=== PATIENT | female | born 1990 | race Caucasian/White ===

== ENCOUNTER 2016-09-23 14:39 | Emergency (ER) | payer SELFPAY ==
[~2016-09-23] VITALS: Ht 160 cm; Wt 80.0 kg
[~2016-09-23 14:39] MED LIST: PRED15SO PO; VENTAER INH; ZITHTAB6 PO
[2016-09-23 14:40] VITALS: BP 122/54; PULSE 76; RESP 20; TEMP 97.9; O2SAT 97
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
[2016-09-23] MEDS ORDERED: PRED20 PO (15:13)
[2016-09-23] MEDS ORDERED: VENTAER INH (15:13)
[2016-09-23] MEDS ORDERED: FLUT1SPR9 EACH NARE (15:13)
[2016-09-23] MEDS ORDERED: AMOX875T PO (15:13)
== END 2016-09-23 15:39 | disposition home or self-care (01) ==
LOC: NEPB 14:39
DX: J01.90 Acute sinusitis, unspecified (principal); J45.901 Unspecified asthma with (acute) exacerbation; F17.210 Nicotine dependence, cigarettes, uncomplicated
CPT/HCPCS: 99283

== ENCOUNTER 2016-09-30 15:03 | Emergency (ER) | payer BC ==
[~2016-09-30] VITALS: Ht 160 cm; Wt 80.0 kg
[~2016-09-30 15:03] MED LIST changes: +AMOX875T PO; +FLUT1SPR9 EACH NARE; -PRED15SO PO; +PRED20 PO; -ZITHTAB6 PO
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
[2016-09-30] MEDS: ALUMINUM/MAGNESIUM/SIMETH 30 ML CUP PO ONE ×2 (17:00→17:18)
[2016-09-30] MEDS ORDERED: ONDANSETRON ODT 4 MG TAB PO ONE (17:00)
[2016-09-30] MEDS: LIDOCAINE VISCOUS 2% SOLN 15 ML UDC PO ONE ×2 (17:00→17:18)
[2016-09-30] MEDS ORDERED: ZOFR4TAB PO (17:02)
[2016-09-30 17:05] VITALS: BP 117/70; PULSE 68; RESP 18; TEMP 97.9; O2SAT 98
[2016-09-30 17:23] LABS: BLOOD, URINE SMALL (NEG); COMMENT (UR) CULT NOT INDICATED; CULTURE IF INDICATED CULT NOT INDICATED; GLUCOSE,URINE NEG (NEG); KETONE, URINE NEG (NEG); MUCUS URINE FEW /lpf (OCC); NITRITE,URINE NEG (NEG); PH, URINE 5.5 (5.0-8.5); SQUAMOUS EPITHELIAL CELL URINE 1 /hpf (0-5); URINE COLOR YELLOW (YELLW/STRAW)
== END 2016-09-30 17:36 | disposition left against medical advice (07) ==
LOC: NETRI 15:03
DX: R11.2 Nausea with vomiting, unspecified (principal); F17.210 Nicotine dependence, cigarettes, uncomplicated
CPT/HCPCS: 81001; 84703; 99284

== ENCOUNTER 2016-12-15 12:50 | Emergency (ER) | payer BC ==
[~2016-12-15] VITALS: Ht 157.5 cm; Wt 90.0 kg
[~2016-12-15 12:50] MED LIST changes: +ZOFR4TAB PO
[2016-12-15 12:52] VITALS: BP 120/78; PULSE 96; RESP 16; TEMP 98.3; O2SAT 96
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
[2016-12-15] MEDS ORDERED: IBUP800T23 PO (13:43)
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
== END 2016-12-15 15:19 | disposition left against medical advice (07) ==
LOC: NEPK 12:50
DX: M25.571 Pain in right ankle and joints of right foot (principal)
CPT/HCPCS: 73610; 99283

== ENCOUNTER 2017-01-02 13:46 | Emergency (ER) | payer SELFPAY ==
[~2017-01-02 13:46] MED LIST changes: +IBUP800T23 PO
[2017-01-02 13:47] VITALS: BP 120/73; PULSE 106; RESP 20; TEMP 98.1; O2SAT 96
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
== END 2017-01-02 16:00 | disposition home or self-care (01) ==
LOC: NEPK 13:46
DX: S93.401D Sprain of unspecified ligament of right ankle, subsequent encounter (principal); F31.9 Bipolar disorder, unspecified; F41.9 Anxiety disorder, unspecified; M94.0 Chondrocostal junction syndrome [Tietze]; F17.210 Nicotine dependence, cigarettes, uncomplicated; X58.XXXD Exposure to other specified factors, subsequent encounter
CPT/HCPCS: 99283; E0113; L1906

== ENCOUNTER 2017-05-24 16:05 | Emergency (ER) | payer MEDICAID ==
[~2017-05-24] VITALS: Ht 160 cm; Wt 90.5 kg
[~2017-05-24 16:05] MED LIST changes: -AMOX875T PO; -FLUT1SPR9 EACH NARE; -IBUP800T23 PO; -PRED20 PO; -ZOFR4TAB PO
[2017-05-24 16:06] VITALS: BP 141/98; PULSE 75; RESP 16; TEMP 98.1; O2SAT 98
--- NOTE | 2017-05-24 16:18 | PD ---
Physical Exam Date Seen by Provider: May 24, 2017 Time Seen by Provider: 16:17 Narrative 26 yo female here for bleeding and . Unknown how long. Found out recently by urine. Started bleeding with cramping about one hour ago. No other medical issues. Vitals are stable in triage. Awaiting bed placement. Data Data Last Documented VS Vital Signs Date Time Temp Pulse Resp B/P (MAP) Pulse Ox O2 Delivery O2 Flow Rate FiO2 05/24/17 16:06 98.1 75 16 141/98 (112) 98 Room Air Orders Orders Urinalysis - C+S If Indicated (05/24/17 16:16) Ed Urine Pregnancytest Poc (05/24/17 16:16) MDM Medical Record Reviewed: Yes Supervised Visit with DENTON: Albert Anguiano May 24, 2017 16:18
[2017-05-24 17:06] VITALS: BP 123/58; PULSE 73; RESP 16; O2SAT 98
--- NOTE | 2017-05-24 17:23 | PD ---
HPI Chief Complaint: Related Problem Time Seen by Provider: 17:10 Travel History International Travel<30 days: No Contact w/Intl Traveler<30days: No Traveled to known affect area: No History of Present Illness HPI 26-year-old female presents the emergency department with question of with vaginal bleeding today. Patient denies any significant cramping , But does have some back discomfort. Fever, chills, or dysuria. Patient's last menstrual period was April 05. Patient has never been before. Patient has allergies to coconuts and bees PFSH Past Medical History ADHD: No Bipolar Disorder: Yes Anxiety: Yes Cancer: No Cardiovascular Problems: No Diabetes: No Diminished Hearing: No Musculoskeletal: Yes (COSTOCHONDRITIS) Psychiatric: Yes (HX HBS INPT) Respiratory: No Immunizations Current: No Migraines: No Seizures: No Thyroid Disease: No Ulcer: No Influenza Vaccination: No ?: LMP: APRIL 05, 2017 : 1 Past Surgical History Appendectomy: No Cholecystectomy: Yes Other Surgery: No Social History Alcohol Use: No Tobacco Use: Yes (1/2 PPD PRE-) Substance Use: Yes (MARIJAUNA) Allergies-Medications (Allergen,Severity, Reaction): Coded Allergies: bee venom protein (honey bee) (Unverified Allergy, Severe, THROAT SWELLING , 05/24/17) coconut (Unverified Allergy, Severe, FACIAL EDEMA, 05/24/17) Reported Meds & Prescriptions Reported Meds & Active Scripts Active Review of Systems Except as stated in HPI: all other systems reviewed are Neg General / Constitutional: No: Fever Eyes: No: Visual changes HENT: No: Headaches Cardiovascular: No: Chest Pain or Discomfort Respiratory: No: Shortness of Breath Gastrointestinal: No: Abdominal Pain Genitourinary: Positive: Vaginal Bleeding, No: Urgency, Frequency, Dysuria, Pelvic Pain, Flank Pain Musculoskeletal: No: Pain Skin: No Rash Neurologic: No: Weakness Psychiatric: No: Depression Endocrine: No: Polydipsia Hematologic/Lymphatic: No: Easy Bruising Physical Exam Narrative GENERAL: Patient is no acute distress SKIN: Warm and dry. Normal color. Normal turgor. HEAD: Atraumatic. Normocephalic. EYES: Pupils equal and round. No scleral icterus. No injection or drainage. ENT: No nasal bleeding or discharge. Mucous membranes pink and moist. Pharynx is clear. Airway is patent. NECK: Trachea midline. Supple and nontender. CARDIOVASCULAR: Regular rate and rhythm. RESPIRATORY: No accessory muscle use. Clear to auscultation. Breath sounds equal bilaterally. GASTROINTESTINAL: Abdomen soft, non-tender, nondistended. Hepatic and splenic margins not palpable. MUSCULOSKELETAL: Extremities without clubbing, cyanosis, or edema. No obvious deformities. No CVA tenderness. NEUROLOGICAL: Awake and alert. No obvious cranial nerve deficits. Motor grossly within normal limits. Five out of 5 muscle strength in the arms and legs. Normal speech. PSYCHIATRIC: Appropriate mood and affect; insight and judgment normal. Data Data Last Documented VS Vital Signs Date Time Temp Pulse Resp B/P (MAP) Pulse Ox O2 Delivery O2 Flow Rate FiO2 05/24/17 17:06 73 16 123/58 (79) 98 Room Air 05/24/17 16:06 98.1 Orders Orders Urinalysis - C+S If Indicated (05/24/17 16:16) Ed Urine Pregnancytest Poc (05/24/17 16:16) Beta Hcg (Quant/Titer) (05/24/17 17:14) Complete Blood Count With Diff (05/24/17 17:14) Comprehensive Metabolic Panel (05/24/17 17:14) Complete Rh (05/24/17 17:14) Type And Screen (05/24/17 17:14) Us Pelvis (Ques Preg/Ectopic) (05/24/17 ) Labs Laboratory Tests Test 05/24/17 17:32 White Blood Count 13.6 TH/MM3 Red Blood Count 4.86 MIL/MM3 Hemoglobin 14.8 GM/DL Hematocrit 43.2 % Mean Corpuscular Volume 89.0 FL Mean Corpuscular Hemoglobin 30.4 PG Mean Corpuscular Hemoglobin Concent 34.2 % Red Cell Distribution Width 13.3 % Platelet Count 267 TH/MM3 Mean Platelet Volume 9.1 FL Neutrophils (%) (Auto) 62.4 % Lymphocytes (%) (Auto) 25.0 % Monocytes (%) (Auto) 10.5 % Eosinophils (%) (Auto) 1.6 % Basophils (%) (Auto) 0.5 % Neutrophils # (Auto) 8.5 TH/MM3 Lymphocytes # (Auto) 3.4 TH/MM3 Monocytes # (Auto) 1.4 TH/MM3 Eosinophils # (Auto) 0.2 TH/MM3 Basophils # (Auto) 0.1 TH/MM3 CBC Comment DIFF FINAL Differential Comment Blood Urea Nitrogen 13 MG/DL Creatinine 0.73 MG/DL Random Glucose 89 MG/DL Total Protein 7.5 GM/DL Albumin 3.6 GM/DL Calcium Level 8.7 MG/DL Alkaline Phosphatase 62 U/L Aspartate Amino Transf (AST/SGOT) 18 U/L Alanine Aminotransferase (ALT/SGPT) 26 U/L Total Bilirubin 0.2 MG/DL Sodium Level 137 MEQ/L Potassium Level 4.0 MEQ/L Chloride Level 104 MEQ/L Carbon Dioxide Level 25.5 MEQ/L Anion Gap 8 MEQ/L Estimat Glomerular Filtration Rate 96 ML/MIN Human Chorionic Gonadotropin, Quant 149 MIU/ML [facility] Medical Decision Making Medical Screen Exam Complete: Yes Emergency Medical Condition: Yes Differential Diagnosis Early . Threatened . Ectopic. Narrative Course Urine is positive. Labs ordered including CBC, CMP, and hCG. Ultrasound is ordered. CBC is unremarkable. CMP is unremarkable. Serum hCG is 149. Ultrasound is negative for obvious products of conception. Patient is to come back in 48 hours for repeat hCG. This is a presumed threatened miscarriage. Patient can return sooner with worsening symptoms as needed. Diagnosis Primary Impression: Threatened miscarriage in early Referrals: [facility] Patient Instructions: General Instructions, Miscarriage (ED) Additional Instructions: CBC is unremarkable. CMP is unremarkable. Serum hCG is 149. Ultrasound is negative for obvious products of conception. Patient is to come back in 48 hours for repeat hCG. This is a presumed threatened miscarriage. Patient can return sooner with worsening symptoms as needed. Med/Other Pt SpecificInfo: No Change to Meds Scripts No Active Prescriptions or Reported Meds Disposition: 01 DISCHARGE HOME Condition: Stable Jose Mckinley May 24, 2017 17:23
[2017-05-24 17:48] LABS: AUTOMATED NEUTROPHIL # 8.5 TH/MM3 (1.8-7.7); BASOPHIL # 0.1 TH/MM3 (0-0.2); BASOPHIL % 0.5 % (0.0-2.0); EOSINOPHIL # 0.2 TH/MM3 (0-0.4); EOSINOPHIL % 1.6 % (0.0-4.0); HEMATOCRIT 43.2 % (35.0-46.0); HEMO FLAGS DIFF FINAL; LYMPHOCYTE # 3.4 TH/MM3 (1.0-4.8); MEAN CORPUSCULAR HEMOGLOBIN 30.4 PG (27.0-34.0); MEAN CORPUSCULAR HGB CONC 34.2 % (32.0-36.0); MONO % 10.5 % (0.0-8.0); NEUT % 62.4 % (16.0-70.0); PLATELET COUNT 267 TH/MM3 (150-450); RED BLOOD COUNT 4.86 MIL/MM3 (4.00-5.30); RED CELL DISTRIBUTION WIDTH 13.3 % (11.6-17.2); WHITE BLOOD COUNT 13.6 TH/MM3 (4.0-11.0)
[2017-05-24 18:07] LABS: ANION GAP 8 MEQ/L (5-15); AST (GOT) 18 U/L (15-37); BICARBONATE 25.5 MEQ/L (21.0-32.0); BLOOD UREA NITROGEN 13 MG/DL (7-18); CHLORIDE 104 MEQ/L (98-107); GLOMERULAR FILTRATION RATE 96 ML/MIN (>89); SODIUM (NA) 137 MEQ/L (136-145)
[2017-05-24 18:11] LABS: ALKALINE PHOSPHATASE 62 U/L (45-117); ALT (GPT) 26 U/L (10-53); BETA HCG QUANT 149 MIU/ML (0-5); TOTAL BILIRUBIN ADULT 0.2 MG/DL (0.2-1.0)
--- NOTE | 2017-05-24 18:29 | RADRPT ---
EXAM DATE/TIME: 05/24/2017 17:53 [place] COMPARISON: No previous studies available for comparison. INDICATIONS : Bleeding. LAB(S): Beta-hC MEDICAL HISTORY : . Bipolar disorder. Anxiety. Psychiatric problems. Substance use. SURGICAL HISTORY : Cholecystectomy. ENCOUNTER: Initial ACUITY: 4-6 days PAIN SCORE: 2/10 LOCATION: Bilateral pelvis MEASUREMENTS: UTERUS: 8.0 x 5.5 x 3.6 cm ENDOMETRIAL STRIPE: 7 mm RIGHT OVARY: cm Non visualized LEFT OVARY: 2.8 x 3.4 x 2.6 cm FREE FLUID: No FINDINGS: Only a transabdominal ultrasound was performed. The patient refused the transvaginal ultrasound exami nation. UTERUS: The myometrium has homogeneous echotexture without mass. An IUP was not seen. RIGHT OVARY: Right ovary was not visualized. LEFT OVARY: The left ovary appears grossly normal. MISCELLANEOUS: No free fluid. CONCLUSION: No IUP is seen on this transabdominal ultrasound examination. The patient refused a transvaginal ultr asound examination. Feliz Bean MD on May 24, 2017 at 18:25 Board Certified Radiologist. This report was verified electronically.
== END 2017-05-24 18:53 | disposition home or self-care (01) ==
LOC: NEPD 16:05
DX: O20.0 Threatened abortion (principal); Z3A.01 Less than 8 weeks gestation of pregnancy
CPT/HCPCS: 76700; 80053; 84702; 84703; 85025; 86850; 86900; 86901

== ENCOUNTER 2017-08-19 18:37 | Emergency (ER) | payer MEDICAID ==
[~2017-08-19] VITALS: Ht 160 cm; Wt 86.2 kg
[2017-08-19 18:41] VITALS: BP 146/59; PULSE 98; RESP 13; TEMP 98.2; O2SAT 95
[2017-08-19] MEDS ORDERED: ALBU6.7H INH (19:16)
[2017-08-19] MEDS ORDERED: PRED-503 PO (19:16)
--- NOTE | 2017-08-19 19:21 | PD ---
HPI Chief Complaint: Cold / Flu Symptoms Time Seen by Provider: 19:08 Travel History International Travel<30 days: No Contact w/Intl Traveler<30days: No Traveled to known affect area: No History of Present Illness HPI 26-year-old white female presents to the emergency department requesting evaluation of possible bronchitis. Patient states that she's been sick now for past 2-3 days. She has had runny nose, cough, congestion, mild sore throat, shortness breath, chest tightness and wheezing. She had some loose stools but no nausea or vomiting. No fever or chills. No abdominal pain or urinary symptoms. Patient is a smoker. PFSH Past Medical History ADHD: No Bipolar Disorder: Yes Anxiety: Yes Cancer: No Cardiovascular Problems: No Diabetes: No Patient Takes Glucophage: No Diminished Hearing: No Musculoskeletal: Yes (COSTOCHONDRITIS) Psychiatric: Yes (HX HBS INPT) Respiratory: Yes (BRONCHITIS) Immunizations Current: No Migraines: No Seizures: No Thyroid Disease: No Ulcer: No Tetanus Vaccination: < 5 Years ?: Unknown Past Surgical History Appendectomy: No Cholecystectomy: Yes Other Surgery: No Social History Alcohol Use: No Tobacco Use: Yes (08/22 PPD ) Substance Use: Yes (MARIJAUNA) Allergies-Medications (Allergen,Severity, Reaction): Coded Allergies: bee venom protein (honey bee) (Unverified Allergy, Severe, THROAT SWELLING , 05/24/17) coconut (Unverified Allergy, Severe, FACIAL EDEMA, 05/24/17) Reported Meds & Prescriptions Reported Meds & Active Scripts Active Proventil Hfa 6.7 GM Inh (Albuterol Sulfate) 90 Mcg/Act Aer 2 Puff INH Q4-6H PRN Deltasone (Prednisone) 20 Mg Tab 20 Mg PO TID 5 Days Review of Systems General / Constitutional: No: Fever Eyes: No: Visual changes HENT: Positive: Sore Throat, Rhinorrhea, Congestion, No: Headaches Cardiovascular: No: Chest Pain or Discomfort Respiratory: Positive: Cough, Shortness of Breath, Wheezing Gastrointestinal: Positive: Diarrhea, No: Nausea, Vomiting, Abdominal Pain Genitourinary: No: Dysuria Musculoskeletal: No: Pain Skin: No Rash Neurologic: No: Weakness Psychiatric: No: Depression Endocrine: No: Polydipsia Hematologic/Lymphatic: No: Easy Bruising Physical Exam Narrative GENERAL: Well-developed, well-nourished in no acute distress. Nontoxic appearing. HEAD: Normocephalic, atraumatic. EYES: Pupils equal round and reactive. Extraocular motions intact. No scleral icterus. No injection or drainage. ENT: TMs clear without erythema. The external auditory canals clear. Nose: clear . Posterior pharynx is mildly erythematous and moist. No tonsillar edema or exudate. Uvula midline. Airway patent. NECK: Trachea midline.Supple, nontender, moves head freely. No central bony tenderness or spasm. CARDIOVASCULAR: Regular rate and rhythm without murmurs, gallops, or rubs. RESPIRATORY: Few rhonchi with occasional expiratory wheeze. No Rales. GASTROINTESTINAL: Abdomen soft, non-tender, nondistended. No hepato-splenomegaly , or palpable masses. No guarding. EXTREMITIES: No clubbing, cyanosis, or edema. No joint tenderness, effusion, or edema noted. BACK: Nontender without deformity or crepitance. No flank tenderness. Data Data Last Documented VS Vital Signs Date Time Temp Pulse Resp B/P (MAP) Pulse Ox O2 Delivery O2 Flow Rate FiO2 08/19/17 18:41 98.2 98 13 146/59 (88) 95 Orders Orders Ed Discharge Order (08/19/17 19:14) MDM Medical Decision Making Medical Screen Exam Complete: Yes Emergency Medical Condition: Yes Medical Record Reviewed: Yes Differential Diagnosis MDM: High Differential diagnoses: Pneumonia, bronchitis, URI, asthma, RAD, legionnaire's disease, SARS, ARDS, influenza, bronchiolitis, RSV,PE,CHF Narrative Course This is bronchitis with RAD Diagnosis Primary Impression: bronchitis with reactive airway disease Patient Instructions: General Instructions Additional Instructions: Rest. Increase fluids. Smoking cessation. Tylenol and Advil. Robitussin-DM. prednisone, and albuterol. Followup with your Dr. in one week. Return to the ER for any problems. Med/Other Pt SpecificInfo: Prescription(s) given Scripts Albuterol 6.7 GM Inh (Proventil Hfa 6.7 GM Inh) 90 Mcg/Act Aer 2 PUFF INH Q4-6H Y for SHORTNESS OF BREATH, #1 INHALER 0 Refills Prov: Jane Arce DO 08/19/17 Prednisone (Deltasone) 20 Mg Tab 20 MG PO TID for 5 Days, TAB 0 Refills Prov: ClaudeJane L DO 08/19/17 Disposition: 01 DISCHARGE HOME Condition: Stable Everardo Cedeño Aug 19, 2017 19:21
== END 2017-08-19 19:50 | disposition home or self-care (01) ==
LOC: NEPD 18:37
DX: J45.909 Unspecified asthma, uncomplicated (principal); F17.210 Nicotine dependence, cigarettes, uncomplicated
CPT/HCPCS: 99284